=== PATIENT | female | born 1980 | race African-American/Black ===

== ENCOUNTER → 2019-10-24 | Day surgery (SDC) | payer OTHER ==
[~2019-10-24] MED LIST: ATENOLOL50 MG PO; DEPO-PROVE150 MG/11 IM; FENTANYL CITRATE/PF 100MCG/2 ML INJ ONE; FERROUS SULFAT324 MG PO; LEVOTHYROXINE75 MCG PO; LIDOCAINE HCL 2% LOCAL INJ 5 ML SDV VIAL INJ ONE; MIDAZOLAM HCL 2 MG/2 ML VIAL ONE; PROPOFOL IV EMULSION 10 MG/ML 20 ML VIAL ONE; [UNRECOGNIZED DRUG - REMARK] TOP
--- OUTSIDE RECORDS SUMMARY | 2019-10-24 09:33 | XMS REPORT ---
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 Cody A [place] Pelvic pain, chronic active Cody A [place] Primary dysmenorrhea active Cody A [place] ENCOUNTERS Date Type Provider Location Encounter Diagnosis - Ambulatory Encounter Roger Campbell [place] UNK - Ambulatory Encounter Cody A [place] Cody A 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 UNK - Ambulatory Encounter Cody A [place] Cody A [place] [employer]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 UNK - Ambulatory Encounter Paula Truong [facility] Services UNK - Ambulatory Encounter Fax Status [facility] Services UNK - Ambulatory Encounter Silviwesleya Briceno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 UNK - Ambulatory Encounter Cody A [place] Cody A [place] [facility] [place] [facility] UNK - Ambulatory Encounter Cody A [place] Cody A 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 UNK - Ambulatory Encounter Cody A [place] Cody A [place] Campbell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 Pulp Drier annual examCervix, screening for malignant neoplasmHistory of ovarian cystHx of fibroids, uterus - Ambulatory Encounter Cody Ross A 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 UNK - Ambulatory Encounter [facility] [place] 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 - Ambulatory Encounter Cody A [place] Cody A Phoenix [facility] 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 UNK - Ambulatory Encounter Phoebe Larose [facility] UNK - Ambulatory Encounter Fax Status [facility] UNK - Ambulatory Encounter Codyeloy Ross A [place] [facility] 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 UNK - Ambulatory Encounter Cody A [place] Ross A [place] Campbell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 UNK - Ambulatory Encounter Cody Bud Ross A 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 UNK - Ambulatory Encounter Cody A [place] Ross A [place] Truong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 Primary dysmenorrheaPelvic pain, chronic VITAL SIGNS Date Observation Value Provider oxygen saturation, oximetry 97 % Paula Campbell " method used to obtain blood pressure automatic Paula Campbell " Blood Pressure Position 01 sitting Paula Campbell " blood pressure, site #1 left arm Paula Campbell " blood pressure, diastolic 90 mm[Hg] Paula Campbell " blood pressure, systolic 159 mm[Hg] Paula Campbell " respiratory rate E&M 17 /min Paula Campbell " pulse rate E&M 96 /min Paula Campbell " temperature site oral Paula Campbell " temperature E&M 98.6 [degF] Paula Campbell " weight E&M 250 lbs. Paula Campbell " weight in kilograms E&M 113.64 kg Paula Campbell " height E&M 63 [in_i] Paula Campbell " height in centimeters E&M 160.02 cm Paula Campbell oxygen saturation, oximetry 98 % Paula Adrian " method used to obtain blood pressure automatic Paula Campbell " Blood Pressure Position 01 sitting Paula Campbell " blood pressure, site #1 left arm Paula Campbell " blood pressure, diastolic 85 mm[Hg] Paula Campbell " blood pressure, systolic 143 mm[Hg] Paula Campbell " respiratory rate E&M 17 /min Paula Campbell " pulse rate E&M 80 /min Paula Campbell " temperature site oral Paula Campbell " temperature E&M 98.1 [degF] Paula Campbell " weight E&M 245 lbs. Paula Campbell " weight in kilograms E&M 111.36 kg Paula Campbell " height in centimeters E&M 160.02 cm Paula Campbell " height E&M 63 [in_i] Paula Campbell Allergies No Known Allergy Information REASON FOR REFERRAL Start Date - End Date Service - Ultrasound - Pelvic RESULTS No Information Available HISTORY OF IMMUNIZATIONS No Information Available HISTORY OF MEDICATION USE Medication Instructions Dates Provider Comments IBUPROFEN 800 MG ORAL TABLET 1 pill every 8 h By Mouth As Needed for cramps - Cody WHEELER LOESTRIN FE 1 MG-10 MCG / 10 MCG ORAL TABLET 1 pill daily po - Cody Garibay SOCIAL HISTORY Date Observation Value Provider time of call 09/14/2019 4:08 PM Trudy Campbell time of call 05/04/2019 10:26 AM Ratna Truong drug use, illicit Never Paula Campbell " alcohol use Never Paula Campbell " social history E&M Dating. Not homeless. Sexual orientation: Choose not to disclose. Gender identity: Female. Paula Campbell " social history reviewed E&M reviewed today Paula Campbell " sexual orientation Choose not to disclose Paula Campbell " smoking status never smoker Paula Campbell " Exercise Program Referral T Paula Campbell " Weight Management Counseling Provided T Paula Campbell " Nutrition intervention T Paula Campbell social history reviewed E&M reviewed today Paula Campbell " social history E&M Dating. Not homeless. Sexual orientation: Choose not to disclose. Gender identity: Female. Paula Campbell " patient considered to be homeless No Paula Campbell " drug use, illicit Never Paula Parras " alcohol use Never Paula Parras " sexual orientation Choose not to disclose Paula Campbell " is there any chance that you could be ? No Paula Campbell " passive cigarette smoke exposure No Paula Campbell " smoking status never smoker Paula Campbell " Exercise Program Referral T Paula Campbell " Weight Management Counseling Provided T Paula Campbell " Nutrition intervention T Paula Parras FUNCTIONAL STATUS No Information Available MENTAL STATUS Date Observation Value Provider Generalized Anxiety Disorder Questionnaire - Question 2 0 Paula Campbell " Generalized Anxiety Disorder Questionnaire - Question 1 0 Paula Campbell Generalized Anxiety Disorder Questionnaire - Question 2 0 Paula Parras " Generalized Anxiety Disorder Questionnaire - Question 1 0 Paula Campbell MEDICAL EQUIPMENT No Information Available FAMILY HISTORY No Information Available INSURANCE PROVIDERS No Information Available ADVANCE DIRECTIVES No Information Available TREATMENT PLAN Date Name Pap w/HPV w rflx 16/18/45 (30+) - Est Patient Well Exam (18 - 39 Yrs) - 78794 New Patient Detailed - 54029 HISTORY OF PROCEDURES No Information Available GOALS No Information Available HEALTH CONCERNS No Information Available
--- OUTSIDE RECORDS SUMMARY | 2019-10-24 09:33 | XMS REPORT ---
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 Cody A [place] Pelvic pain, chronic active Cody A [place] Primary dysmenorrhea active Cody A [place] ENCOUNTERS Date Type Provider Location Encounter Diagnosis - Ambulatory Encounter Cody A [place] Cody A [place] [facility] DIRECT[facility] UNK - Ambulatory Encounter Cody A [place] Cody A [place] aJya Truong [place] DAY[facility] DIRECTOR Menometrorrhagia - Ambulatory Encounter Silviwesleya Briceno Trudy Caraballo UNK - Ambulatory Encounter Cody A [place] Cody A [place] [facility] UNK - Ambulatory Encounter Cody A [place] Cody A [place] RicoLogbernardo [place] DAYCARE DIRECTOR UNK - Ambulatory Encounter Paula Truong [facility] Services UNK - Ambulatory Encounter [facility] - Ambulatory Encounter Silviamaria Briceno [place] DAYCARE DIRECTOR UNK - Ambulatory Encounter Cody A [place] Cody A [place] [facility] UNK - Ambulatory Encounter Cody Ross A [place] DAYCARE DIRECTOR UNK - Ambulatory Encounter Cody Bud [place] Campbell [place] DAYCARE DIRECTOR Check Totaler annual examCervix, screening for malignant neoplasmHistory of ovarian cystHx of fibroids, uterus - Ambulatory Encounter Cody Ross A [place] DAYCARE DIRECTOR UNK - Ambulatory Encounter Cody Ross A [place] [facility] DAYCARE DIRECTOR UNK - Ambulatory Encounter Cody Ross A [place] [facility] DAYCARE DIRECTOR UNK - Ambulatory Encounter Phoebe Larose [facility] Practice UNK - Ambulatory Encounter [facility]ax Status [facility] UNK - Ambulatory Encounter Cody Ross A [place] [facility] DAYCARE DIRECTOR UNK - Ambulatory Encounter Cody Campbell [place] DAYCARE DIRECTOR UNK - Ambulatory Encounter Cody Ross A [place] DAYCARE DIRECTOR UNK - Ambulatory Encounter Cody Truong [place] DAYCARE DIRECTOR Primary dysmenorrheaPelvic pain, chronic VITAL SIGNS Date Observation Value Provider pulse rate E&M 89 /min Jaya Truong " method used to obtain blood pressure manual Jaya Truong " Blood Pressure Position 01 sitting Jaya Truong " blood pressure, site #1 right arm Jaya Truong " respiratory rate E&M 16 /min Seancyn Alexi " blood pressure, diastolic 75 mm[Hg] Seancyn Alexi " blood pressure, systolic 142 mm[Hg] Seancyn Alexi " oxygen saturation, oximetry 98 % Jaya Alexi " weight E&M 239 lbs. Jaya Alexi " weight in kilograms E&M 108.64 kg Jaya Alexi " height E&M 63 [in_i] Jaya Alexi " height in centimeters E&M 160.02 cm Seancyn Alexi oxygen saturation, oximetry 97 % Paula Parras " method used to obtain blood pressure [...] Campbell oxygen saturation, oximetry 98 % Paula Parras " method used to obtain blood pressure automatic Paula Parras " Blood Pressure Position 01 sitting Paula [...] Garibay SOCIAL HISTORY Date Observation Value Provider drug use, illicit Never Jaya Truong " alcohol use Never Jaya Truong " social history E&M Dating. Not homeless. Sexual orientation: Choose not to disclose. Gender identity: Female. Jaya Truong " social history reviewed E&M reviewed today Jaya Truong " sexual orientation Choose not to disclose Jaya Truong " passive cigarette smoke exposure No Jaya Truong " smoking status never smoker Jaya Truong time of call 09/14/2019 4:08 PM Trudy Campbell time of call 05/04/2019 10:26 AM Ratna Truong drug use, illicit Never Paula Parras " alcohol use Never Paula Campbell " social history E&M Dating. Not homeless. Sexual orientation: Choose not to disclose. Gender identity: Female. Paula Campbell " social history reviewed E&M reviewed today Paula Campbell " sexual orientation Choose not to disclose Paula Campbell " smoking status never smoker Paula Parras " Exercise Program Referral T Paula Parras " Weight Management Counseling Provided T Paula Parras " Nutrition intervention T Paula Parras social history reviewed E&M reviewed today Paula Campbell " social history E&M Dating. Not homeless. Sexual orientation: Choose not to disclose. Gender identity: Female. Paula Campbell " patient considered to be homeless No Paula Parras " drug use, illicit Never Paula Campbell " alcohol use Never Paula Campbell " sexual orientation Choose not to disclose Paula Campbell " is there any chance that you could be ? No Paula Parras " passive cigarette smoke exposure No Paula Parras " smoking status never smoker Paula Campbell " Exercise Program Referral T Paula Parras " Weight Management Counseling Provided T Paula Parras " Nutrition intervention T Paula Campbell FUNCTIONAL STATUS No Information Available MENTAL STATUS Date Observation Value Provider Generalized Anxiety Disorder Questionnaire - Question 2 0 Jaya Truong " Generalized Anxiety Disorder Questionnaire - Question 1 0 Jaya Truong Generalized Anxiety Disorder Questionnaire - Question 2 [...] Pap w/HPV w rflx 16/18/45 (30+) - IM or SQ Injection Est Patient Exp Problem - 93643 Est Patient Well Exam (18 - 39 Yrs) - 04454 New Patient Detailed - 29454 HISTORY OF PROCEDURES Procedure Date Procedure Name Provider Procedure Notes Status IM or SQ Injection Cody Garibay completed GOALS No Information Available HEALTH CONCERNS No Information Available
--- OUTSIDE RECORDS SUMMARY | 2019-10-24 09:33 | XMS REPORT ---
Author Author [facility] Address Unknown Phone Unavailable Care Team Providers Care Car Wash Supervisor Name Role Phone Unavailable Unavailable Problems This patient has no known problems. Allergies, Adverse Reactions, Alerts This patient has no known allergies or adverse reactions. Medications This patient has no known medications.
--- OUTSIDE RECORDS SUMMARY | 2019-10-24 09:33 | XMS REPORT ---
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 UNK - Ambulatory Encounter Cody A [place] Cody A [place] Jaya Truong [employer] FELT MACHINE MECHANIC Menometrorrhagia - Ambulatory Encounter Silviwesleya Briceno Trudy Caraballo UNK - Ambulatory Encounter Cody A [place] Cody A [place] [employer] FELT MACHINE MECHANIC UNK - Ambulatory Encounter Cody A [place] Cody A [place] RicoLogbernardo [employer] FELT MACHINE MECHANIC UNK - Ambulatory Encounter Paula Truong Pending [facility] UNK - Ambulatory Encounter Fax Status [facility] UNK - Ambulatory Encounter Silviamaria Briceno [place] FELT MACHINE MECHANIC UNK - Ambulatory Encounter Cody A [place] Cody A [place] [facility] UNK - Ambulatory Encounter Cody Ross A [place] [employer] FELT MACHINE MECHANIC UNK - Ambulatory Encounter Cody Bud [place] Campbell [employer] FELT MACHINE MECHANIC Senior Sql Server Developer annual examCervix, screening for malignant neoplasmHistory of ovarian cystHx of fibroids, uterus - Ambulatory Encounter Cody Ross A [place] [employer] FELT MACHINE MECHANIC UNK - Ambulatory Encounter Cody Ross A [place] [facility] FELT MACHINE MECHANIC UNK - Ambulatory Encounter Cody Ross A [place] [facility] FELT MACHINE MECHANIC UNK - Ambulatory Encounter Phoebe Larose [facility] Practice UNK - Ambulatory Encounter Fax Status [facility] UNK - Ambulatory Encounter Cody Ross A [place] [facility] FELT MACHINE MECHANIC UNK - Ambulatory Encounter Cody Campbell [employer] FELT MACHINE MECHANIC UNK - Ambulatory Encounter Cody Ross A [place] [employer] FELT MACHINE MECHANIC UNK - Ambulatory Encounter Cody Truong [place] FELT MACHINE MECHANIC Primary dysmenorrheaPelvic pain, chronic VITAL SIGNS Date [...] SQ Injection Est Patient Exp Problem - 67078 Est Patient Well Exam (18 - 39 Yrs) - 90170 New Patient Detailed - 06141 HISTORY OF PROCEDURES Procedure Date Procedure Name Provider Procedure Notes Status IM or SQ Injection Cody Garibay completed GOALS No Information Available HEALTH CONCERNS No Information Available
--- OUTSIDE RECORDS SUMMARY | 2019-10-24 09:34 | XMS REPORT | Summary of Care ---
Author Author [facility] - Health Organization [facility] - Health Address Unknown Phone Unavailable Care Team Providers Care Sales Service Route Manager Name Role Phone Quan Rodríguez PCP Reason for Visit * Reason Comments LAB WORK Encounter Details Care Team Description Date Type Department Evelyn Resendiz, BRIDGE OPERATOR [address] [facility] [address] [place] [address] [phone] Vls-Lab Acute cystitis without hematuria; Left ureteral calculus 10/05/2019 Smoke Jumper Supervisor [facility] Visit PHLEBOTOMY/LAB [address] [facility] [address] [place] [phone] Allergies No Known Allergiesdocumented as of this encounter (statuses as of 10/05/2019) Medications End Date Status Medication Sig Dispensed Refills Start Date Active ferrous sulfate (IRON, Take 325 mg 0 FERROUS SULFATE,) 325 mg by mouth 3 (65 mg iron) tablet (three) times daily with meals. Active hydrocortisone (HYTONE) Apply to 60 g 3 2.5 % creamIndications: affected 6 Rash area(s) 2 (two) times daily. Active fluocinolone Apply to 118.28 mL 3 (DERMA-SMOOTHE) 0.01 % area(s) 2 6 body oilIndications: Rash (two) times daily. Active hydrOXYzine (ATARAX) 10 Take 1 tablet 90 tablet 1 mg tabletIndications: by mouth at 6 Rash bedtime. Up to 3 tabs qHS PRN pruritus Active triamcinolone acetonide Apply to 454 g 2 0.1 % area(s) 2 9 ointmentIndications: Rash (two) times and other nonspecific daily. skin eruption Active triamcinolone acetonide Apply to 320 g 3 0.1 % creamIndications: area(s) 2 9 Rash and other (two) times nonspecific skin eruption daily. Apply BID-TID, apply vaseline on top of medication 10/13/2019 Active ondansetron 4 mg tablet Take 4 mg by 0 mouth. 0 Active LO LOESTRIN FE 1 mg-10 TK 1 T PO D 0 mcg (24)/10 mcg (2) per 0 tablet 10/13/2019 Active naproxen 500 mg tablet Take 500 mg 0 by mouth. 0 Active levothyroxine 75 mcg TK 1 T PO QD 0 tablet 0 Active atenoloL 25 mg tablet TK 1 T PO QD 0 0 Active ibuprofen 800 mg tablet TK 1 T PO Q 0 8 H PRF 0 CRAMPS Active amoxicillin 875 mg Take 1 tablet 10 tablet 0 tabletIndications: Acute by mouth 2 0 cystitis without (two) times hematuria daily. Active tamsulosin 0.4 mg 24 hr Take 1 21 capsule 0 capsuleIndications: Left capsule by 0 ureteral calculus mouth at bedtime. documented as of this encounter (statuses as of 10/05/2019) Active Problems Problem Noted Date Acute cystitis without hematuria 10/03/2019 Hydronephrosis of left kidney 09/24/2019 Left flank pain 09/24/2019 Renal calculi 09/24/2019 documented as of this encounter (statuses as of 10/05/2019) Social History Date Tobacco Use Types Packs/Day Years Used Never Smoker Smokeless Tobacco: Never Used Drinks/Week oz/Week Comments Alcohol Use Not Asked Sex Assigned at Date Recorded Not on file Industry Job Start Date Occupation Not on file Not on file Not on file Travel End Travel History Travel Start No recent travel history available. documented as of this encounter Last Filed Vital Signs Not on filedocumented in this encounter Plan of Treatment Care Team Description Date Type Specialty Evelyn Resendiz, BRIDGE OPERATOR [address] [facility] [address] [place] [address] [phone] 10/30/2019 Office Visit Urology Health Maintenance Due Date Last Done Comments DTaP,Tdap,and Td Vaccines 1991 (1 - Tdap) PAP SMEAR 2001 INFLUENZA VACCINE (#1) 2019 PNEUMOCOCCAL 0-64 YEARS Aged Out No longer eligible based COMBINED SERIES on patient's age to complete this topic documented as of this encounter Results Not on filedocumented in this encounter Visit Diagnoses Diagnosis Acute cystitis without hematuria Acute cystitis Left ureteral calculus Calculus of ureter documented in this encounter Insurance Type Payer Benefit Subscriber ID Effective Phone Address Plan / Dates Group Medicaid [employer] [place] xxxxxxxxx 2012-P PLAN - MANAGED MEDICAID STAR PLUS resent documented as of this encounter
--- OUTSIDE RECORDS SUMMARY | 2019-10-24 09:34 | XMS REPORT ---
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 Cody Bud CrawfordP[place] Pelvic pain, chronic active Cody A [place] Primary dysmenorrhea active Cody A [place] ENCOUNTERS Date Type Provider Location Encounter Diagnosis - Ambulatory Encounter Roger Sebastian Pending [facility] UNK - Ambulatory Encounter [facility] - Ambulatory Encounter [facility] - Ambulatory Encounter [facility] UNK - Ambulatory Encounter Cody A [place] Cody A [place] [employer] TELEVISION PRESENTER UNK - Ambulatory Encounter Cody A [place] Cody A [place] Daniela Laneinto TELEVISION PRESENTER Menometrorrhagia - Ambulatory Encounter Silcatrachito Campbell [place] UNK - Ambulatory Encounter Cody A [place] Cody A [place] [employer] TELEVISION PRESENTER UNK - Ambulatory Encounter Cody A [place] Cody A [place] [employer] TELEVISION PRESENTER UNK - Ambulatory Encounter Paula Truong [facility] UNK - Ambulatory Encounter Fax Status [facility] UNK - Ambulatory Encounter Roger Briceno [employer] TELEVISION PRESENTER UNK - Ambulatory Encounter Cody A [place] [facility] [place] [facility] - Ambulatory Encounter Cody A [place] Cody A [place] [employer] TELEVISION PRESENTER UNK - Ambulatory Encounter Cody A [place] Ross A [place] aCmpbell [employer] TELEVISION PRESENTER Laborer Ammunition Assembly annual examCervix, screening for malignant neoplasmHistory of ovarian cystHx of fibroids, uterus - Ambulatory Encounter Cody A [place] Cody A [place] [employer] TELEVISION PRESENTER UNK - Ambulatory Encounter Cody A [place] Cody A [place] [facility] - Ambulatory Encounter Cody A [place] Cody A [place] [facility] - Ambulatory Encounter Phoebe Larose [facility] UNK - Ambulatory Encounter Fax Status [facility] UNK - Ambulatory Encounter Cody A [place] Cody A [place] [facility] - Ambulatory Encounter Cody A [place] Cody A [place] Campbell [facility] TELEVISION PRESENTER UNK - Ambulatory Encounter Cody A [place] Ross Bud Garibay Hebert Alvarado TELEVISION PRESENTER UNK - Ambulatory Encounter Cody Bud [place] TELEVISION PRESENTER Primary dysmenorrheaPelvic pain, chronic VITAL SIGNS Date Observation Value Provider pulse rate E&M 89 /min Jaya Truong " method used to obtain blood pressure manual Jaya Truong " Blood Pressure Position 01 sitting Jaya Truong " blood pressure, site #1 right arm Jaya Truong " respiratory rate E&M 16 /min Jaya Truong " blood pressure, diastolic 75 mm[Hg] Jaya Truong " blood pressure, systolic 142 mm[Hg] Jaya Truong " oxygen saturation, oximetry 98 % Jaya Truong " weight E&M 239 lbs. Jaya Truong " weight in kilograms E&M 108.64 kg Jaya Truong " height E&M 63 [in_i] Jaya Truong " height in centimeters E&M 160.02 cm Jaya Truong oxygen saturation, oximetry 97 % Paula Parras [...] Campbell oxygen saturation, oximetry 98 % Paula Campbell " method used to [...] Start Date - End Date Service - OB / Laborer Ammunition Assembly - External - Ultrasound - Pelvic RESULTS No Information [...] Date Observation Value Provider time of call 10/01/2019 2:16 PM Gina Sebastian drug use, illicit Never Jaya Truong " [...] Campbell " drug use, illicit Never Paula Campbell [...] Disorder Questionnaire - Question 1 0 Paula Parras Generalized Anxiety Disorder Questionnaire - Question 2 0 Paula Campbell " Generalized Anxiety Disorder Questionnaire - Question 1 0 Paula Campbell MEDICAL EQUIPMENT No Information Available FAMILY HISTORY No Information Available INSURANCE PROVIDERS No Information Available ADVANCE DIRECTIVES No Information Available TREATMENT PLAN Date Name Pap w/HPV w rflx 16/18/45 (30+) - - IM or SQ Injection Est Patient Exp Problem - 31986 Est Patient Well Exam (18 - 39 Yrs) - 35841 New Patient Detailed - 98320 HISTORY OF PROCEDURES Procedure Date Procedure Name Provider Procedure Notes Status IM or SQ Injection Cody Garibay completed GOALS No Information Available HEALTH CONCERNS No Information Available
--- OUTSIDE RECORDS SUMMARY | 2019-10-24 09:34 | XMS REPORT | Summary of Care ---
Author Author [facility] - Health Organization [facility] - Health Address Unknown Phone Unavailable Care Team Providers Care Clothing Room Supervisor Name Role Phone Marcos Quan Arevalo PCP Reason for Referral * MRI/CAT Scan (Routine) Referred By Contact Referred To Contact Status Reason Specialty Diagnoses / Procedures Evelyn Resendiz [facility] [address] [facility] [address] [place] [address] Authorized Diagnostic Diagnoses Radiology Hydronephrosis of left kidney Left flank pain Renal calculi P rocedures CT ABDOMEN PELVIS W WO CONTRAST Reason for Visit * Reason Comments Establish Care Kidney Stones Encounter Details Care Team Description Date Type Department Evelyn Resendiz [facility] [address] [facility] [address] [place] [address] [phone] Hydronephrosis of left kidney (Primary Dx); Left flank pain; Renal calculi; Acute cystitis without hematuria 09/24/2019 Office Visit [facility] [address], [address] [place] [id number] Allergies No Known Allergiesdocumented as of this encounter (statuses as of 10/03/2019) Medications End Date Status Medication Sig Dispensed [...] 0 cystitis without (two) times hematuria daily. documented as of this encounter (statuses as of 10/03/2019) Active Problems Problem Noted Date Acute cystitis without hematuria 10/03/2019 Hydronephrosis of left kidney 09/24/2019 Left flank pain 09/24/2019 Renal calculi 09/24/2019 documented as of this encounter (statuses as of 10/03/2019) Social History Date Tobacco Use Types Packs/Day Years Used Never Smoker Smokeless Tobacco: Never Used Tobacco Cessation: Counseling Given: Yes Drinks/Week oz/Week Comments Alcohol Use Not Asked Sex Assigned at Date Recorded Not on file Industry Job Start Date Occupation Not on file Not on file Not on file Travel End Travel History Travel Start No recent travel history available. documented as of this encounter Last Filed Vital Signs Reading Time Taken Comments Vital Sign 147/89 09/24/2019 2:41 PM [employer] ARCHIT[employer] Blood Pressure 71 09/24/2019 2:41 PM IN[employer]ICA ARCHITECT Pulse - - Temperature 18 09/24/2019 2:41 PM IN[employer]ICA ARCHITECT Respiratory Rate 98% 09/24/2019 2:41 PM IN[employer]ICA ARCHITECT Oxygen Saturation - - Inhaled Oxygen Concentration 107 kg (235 lb 14.4 oz) 09/24/2019 2:41 PM INFORMATICA ARCHITECT Weight - - Height - - Body Mass Index documented in this encounter Patient Instructions * Patient Instructions* Evelyn Resendiz, PELT INSPECTOR - 09/24/2019 2:30 PM INFORMATICA ARCHITECT Increase water intake Strain urine Understanding Hydronephrosis Hydronephrosis is when your kidneys fill with too much urine and swell up. It s cause by a problem in the urinary tract that stops urine from draining normall y. How to say it [id number] How hydronephrosis happens Urine usually flows from the kidneys down through the ureters, bladder, and out of the body through the urethra. Hydronephrosis occurs when something blocks thi s flow of urine. What causes hydronephrosis? The condition has many possible causes. They include: Narrowing (stricture) in a tube that drains urine (ureter or urethra) Kidney stone Blood clot Enlarged prostate Cancer growth Infection Fibroids in the uterus Injury Symptoms of hydronephrosis Symptoms may include: Pain in your side and back Pain when urinating Nausea and vomiting Small amount of urine or no urine Urinating often or feeling the urge to urinate often Urinary incontinence Blood in urine Fever Symptoms will depend on the cause of the blockage and how serious it is. Diagnosing hydronephrosis Your healthcare provider will ask about your symptoms and health history. He or she will give you a physical exam. The physical exam may include a rectal exam o r a pelvic exam. You may also have tests such as: Blood tests. These are done to see how well your kidneys are filtering the bl ood. Urine test. This is done to look for infections and other problems. Imaging test. You may have an ultrasound, MRI, or CT scan. These tests make i mages of your organs and other tissues. They can show blockages, growths, and ot her problems. Other imaging tests. You may also have a cystourethrogram, ureterogram, or re nogram. These tests create special detailed images of the bladder, ureters, and kidneys. Treatment for hydronephrosis Treatment depends on what is causing the problem. Your healthcare providers will need to drain the urine, and treat the cause. You may also see a urologist, diver's tender real estate firm manager, or oncologist for treatment. Treatment may include: Tube to drain urine. A thin, flexible tube (catheter) may be put into your ur ethra or through a small cut in the abdomen, and up into the kidney. A small tub e (stent) may be put in near the kidney to keep the urine draining. Or a tube ma y be put through a cut in the skin directly into your kidney. Surgery. You may need surgery to fix something blocking urine, such as a grow th or stricture. You may also be treated with: Medicines to treat pain, nausea, and vomiting Antibiotics to treat an infection Possible complications of hydronephrosis In some cases, hydronephrosis may cause long-term (permanent) kidney damage. When to call your healthcare provider Call your healthcare provider if you have any of the following: Fever of 100.4F (38C) or higher, or as directed by your healthcare provid er Pain that gets worse Symptoms that dont get better, or get worse New symptoms Dwayne last reviewed this educational content on 07/29/201719993049-6196 [email or web address]. [address] [place] [address] 1906 7. All rights reserved. This information is not intended as a substitute for pro fessional medical care. Always follow your healthcare professional's instruction s. Understanding Kidney Stones Your kidneys are armenta-shaped organs. They help filter extra salts, waste, and wa ter from your body. You need to drink enough water every day to help flush the e xtra salts into your urine. What are kidney stones? Kidney stones are made up of chemical crystals that separate out from urine. The se crystals clump together to make stones. They form in the calyx of the kidney. They may stay in the kidney or move into the urinary tract. Why kidney stones form Kidneys form stones for many reasons. If you dont drink enough water, for ins tance, you wont have enough urine to dilute chemicals. Then the chemicals may form crystals, which can develop into stones. Here are some reasons why kidney stones form: Fluid loss (dehydration). This can concentrate urine, causing stones to form. Certain foods. Some foods contain large amounts of the chemicals that sometim es crystallize into stones. Eating foods that contain a lot of meat or salt can lead to more kidney stones. Kidney infections. These infections foster stones by slowing urine flow or ch anging the acid balance of your urine. Family history. If family membershave had kidney stones, youre more like ly to have them, too. A lack of certain substances in your urine. Some substances can help protect you from forming stones. If you dont have enough of these in your urine, ston e formation can increase. Where stones form Stones begin in the cup-shaped part of the kidney (calyx). Some stay in the gabbie x and grow. Others moveinto the kidney, pelvis, or into the ureter. There they can lodge, block the flow of urine, and cause pain. Symptoms Many stones cause sudden and severe pain andbloody urine. Others cause nausea or frequent, burning urination. Symptoms often depend on your stones size and location. Fever may indicate a serious infection. Call your healthcare provider right away if you develop a fever. [employer] last reviewed this educational content on 08/29/201619997546-1764 [email or web address]. [address] [place] [address] 7. All rights reserved. This information is not intended as a substitute for pro fessional medical care. Always follow your healthcare professional's instruction s. RMATICA ARCHITECT documented in this encounter Progress Notes * Evelyn Resendiz FNP - 09/24/2019 2:30 PM INFORMATICA ARCHITECT Visit Type: Clinic Note / History and Physical Referred by: ER Chief Complaint: Kidney stones HPI Arturo Adams is a 39 year old female with a past medical history of below presen ts for evaluation of kidney stones accompanied by her mother. She was seen on [facility] 09/13/2019 for LLQ pain with vomiting. WBC 9.4, creatinine 0.90, UA po sitive for blood and small amount of leuks, WBC 15, RBC 32, urine culture with m ixed pedro <10, 000. CT scan with contrast with multiple stones in left kidney 2-10 mm, marked left hydro and no stones in left ureter. Left renal pelvic stone 10 mm. Pelvic US with multiple uterine fibroids - largest 3.3 cm, right ovarian cyst 3.8 cm. No fever, chills, flank pain, vomiting, dysuria or hematuria present currently. No prior history of stones. No recurrent UTIs. Admits to little water intake. LMP 09/03/2019. Histories PMH- HTN, hypothyroid PSH - Umbilical hernia 3-4x - last 2012 Family history - No cancer or stones. Social - No tobacco, recreational drug use or ETOH. No past medical history on file. No past surgical history on file. No family history on file. Social History Socioeconomic History Marital status: Single Spouse name: Not on file Number of children: Not on file Years of education: Not on file Highest education level: Not on file Occupational History Not on file Social Needs Financial resource strain: Not on file Food insecurity: Worry: Not on file Inability: Not on file Transportation needs: Medical: Not on file Non-medical: Not on file Tobacco Use Smoking status: Never Smoker Smokeless tobacco: Never Used Substance and Sexual Activity Alcohol use: Not on file Drug use: Not on file Sexual activity: Not on file Lifestyle Physical activity: Days per week: Not on file Minutes per session: Not on file Stress: Not on file Relationships Social connections: Talks on phone: Not on file Gets together: Not on file Attends congregation service: Not on file Active member of club or organization: Not on file Attends meetings of clubs or organizations: Not on file Relationship status: Not on file Intimate partner violence: Fear of current or ex partner: Not on file Emotionally abused: Not on file Physically abused: Not on file Forced sexual activity: Not on file Other Topics Concern Not on file Social History Narrative Not on file Review of Systems Constitutional: Negative for chills, fever and unexpected weight change. HENT: Negative. Eyes: Negative. Respiratory: Negative for cough, shortness of breath and wheezing. Cardiovascular: Negative for chest pain and palpitations. Gastrointestinal: Positive for abdominal pain and nausea. Negative for vomiting. Genitourinary: Negative for bladder incontinence, dysuria, urgency, frequency an d hematuria. Musculoskeletal: Positive for back pain and myalgias. Skin: Positive for rash. Neurological: Negative. Psychiatric/Behavioral: Negative. Endocrine: Endocrine negative Physical Exam Constitutional: She appears well-developed and well-nourished. No distress. HENT: Head: Normocephalic and atraumatic. Eyes: Conjunctivae are normal. Neck: Neck supple. Cardiovascular: Normal rate. Pulmonary/Chest: Effort normal. Abdominal: Obese, soft. She exhibits no distension. Back: Mild left CVA tenderness Genitourinary: Mild left suprapubic tenderness Musculoskeletal: She exhibits no edema. Neurological: She is alert and oriented to person, place, and time. Skin: Skin is warm and dry. Psychiatric: She has a normal mood and affect. Her behavior is normal. Vitals reviewed. BP (!) 147/89 | Pulse 71 | Resp 18 | Wt 235 lb 14.4 oz (107 kg) | SpO2 98% Laboratory No results found for: CREAT No results found for: HGBA1C There are no current results on file for these tests and/or test for 1 year. There are no current results on file for these tests and/or test for 1 year. There are no current results on file for these tests and/or test for 1 year. There are no current results on file for these tests and/or test for 1 year. Care Everywhere Result Report Urine cultureResulted: 09/15/2019 7:51 AM Roverto [employer]orationism Component Name Value Ref Range Urine culture isolate Mixed pedro <=10-3 col/cc Comment: Specimen Information Specimen Source: Urine Specimen Site: Clean catch Specimen Collected on Results for orders placed or performed during the hospital encounter of 09/13/19 CBC with platelet and differential Result Value Ref Range WBC 9.4 4.2 - 11.0 k/uL RBC 5.21 4.04 - 5.86 m/uL HGB 13.4 11.5 - 15.3 g/dL HCT 43.2 34.0 - 45.0 % MCV 82.9 80.0 - 98.0 fL MCH 25.7 (L) 27.0 - 34.0 pg MCHC 31.0 (L) 31.5 - 36.5 g/dL RDW - SD 42.6 37.0 - 51.0 fL MPV 10.2 7.4 - 10.4 fL Platelet count 445 (H) 150 - 400 k/uL Nucleated RBC 0.00 /100 WBC Neutrophils 62.8 36.0 - 66.0 % Lymphocytes 29.2 24.0 - 44.0 % Monocytes 6.8 (H) 0.0 - 6.0 % Eosinophils 0.6 0.0 - 6.0 % Basophils 0.4 0.0 - 1.2 % Immature granulocytes 0.2 0.0 - 1.0 % Comprehensive metabolic panel Result Value Ref Range Sodium 140 135 - 150 mEq/L Potassium 3.9 3.5 - 5.0 mEq/L Chloride 105 98 - 112 mEq/L CO2 26 24 - 31 mmol/L Anion gap 9@ANIO 7 - 15 mEq/L BUN 6 (L) 7 - 18 mg/dL Creatinine 0.90 0.50 - 0.90 mg/dL Glucose 110 (H) 65 - 100 mg/dL Calcium 9.3 8.3 - 10.2 mg/dL Protein 7.7 6.3 - 8.3 g/dL Albumin 3.9 3.5 - 5.0 g/dL A/G ratio 1.0 0.7 - 3.8 Alkaline phosphatase 76 0 - 104 U/L AST 17 10 - 35 U/L ALT 11 5 - 50 U/L Total bilirubin 0.3 0.2 - 1.2 mg/dL Lipase level Result Value Ref Range Lipase 21 13 - 60 U/L Urinalysis screen and microscopy, with reflex to culture Result Value Ref Range Specimen site Clean catch Color, UA Straw Appearance, UA Clear Specific gravity, UA 1.004 1.001 - 1.035 pH, UA 6.0 5.0 - 8.5 Protein, UA 1+ (A) Negative Glucose, UA Negative Negative Ketones, UA Negative Negative Bilirubin, UA Negative Negative Blood, UA Large (A) Negative Nitrite, UA Negative Negative Urobilinogen, UA Negative <2.0 Leukocyte esterase, UA Small (A) Negative Epithelial cells, UA Many /HPF WBC, UA 15 (H) 0 - 5 /HPF RBC, UA 32 (H) 0 - 5 /HPF Bacteria, UA Many (A) None seen Yeast, UA None seen Yeast with pseudohyphae, UA None seen hCG qualitative, urine screen Result Value Ref Range hCG qualitative, urine Negative Negative Estimated GFR Result Value Ref Range Estimated GFR >=90 mL/min/1.73 m2 Radiology 09/13/2019 CT A/P with contrast - care everywhere FINDINGS: Visualized lower lung zones are clear. The gallbladder has stones. There is no pericholecystic fluid present. The CT appearance of the liver, spleen, adrenal glands and pancreas is unremarka ble. The abdominal aorta has no aneurysmal dilatation. There is no retroperitoneal ad enopathy. The right kidney does not have any stones or any hydronephrosis. The left kidney has multiple stones. They range in size from 2-10 mm. There is marked hydroneph rosis within the left kidney. The left ureter does not have any stones. CT Pelvis: There is no evidence of any pneumoperitoneum. Stomach does not demonstrate any wall thickening. Small bowel is not dilated. The appendix is visualized and has no focal inflammatory change. The uterus is present. There is a 3.1 cm right ovarian cyst present. : Does not have any focal inflammatory change. There is no inguinal hernia. Nons pecific inguinal adenopathy is present. IMPRESSION: 1. There are multiple stones seen within the left kidney. They range in size fro m 2 to 10 mm. The largest stone is seen within the left renal pelvis and measure s 10 mm. 2. There is marked hydronephrosis seen within the left kidney. The left ureter d oes not have any stones. 3. The right kidney, right ureter and bladder do not have any stones. There is n o hydronephrosis seen within the right kidney. 4. Cholelithiasis is present. 5. The appendix is unremarkable. Procedure Note none Assessment/Plan Arturo Adams is a 39 year old female with: 1. Left renal calculi 2-10 mm (no ureteral calculus on CT with contrast) 2. Left hydronephrosis 3. HTN 4. Hypothyroid Plan 1. UA/Urine C&S 2. CT Urogram - assess for ureteral calculus 3. Creatinine 4. Increase water intake 5. Strain urine, urine strainer provider 6. Will notify of results and follow-up accordingly 7. ER precautions discussed 8. Will need metabolic evaluation in future 9. If no ureteral calculus consider renal scan to evaluate hydro Evelyn Resendiz APRN, ARNALDO-C RMATICA ARCHITECT documented in this encounter Plan of Treatment Care Team Description Date Type Specialty Smitha Gonsalez MD [id number] [place] [address] [phone] 10/04/2019 Office Visit Dermatology Health Maintenance Due Date Last Done Comments DTaP,Tdap,and Td Vaccines 1991 (1 - Tdap) PAP SMEAR 2001 INFLUENZA VACCINE (#1) 2019 PNEUMOCOCCAL 0-64 YEARS Aged Out No longer eligible based COMBINED SERIES on patient's age to complete this topic documented as of this encounter Procedures Comments Procedure Name Priority Date/Time Associated Diagnosis URINE CULTURE Routine 09/24/2019 Hydronephrosis of left 3:31 PM INFORMATICA ARCHITECT kidney Left flank pain Renal calculi URINALYSIS Routine 09/24/2019 Hydronephrosis of left 3:30 PM INFORMATICA ARCHITECT kidney Left flank pain Renal calculi documented in this encounter Results * CT ABDOMEN PELVIS W WO CONTRAST (09/29/2019 9:48 AM INFORMATICA ARCHITECT) Specimen Impressions Performed At A punctate stone is suspected in the left distal ureter, near the UVJ PACS/VR/DOSE (3:108). Urothelial thickening and inflammatory changes about the left renal pelvis and proximal ureter is likely related to stone passage; however, an underlying ascending UTI cannot be excluded. Left renal pelvic stone measuring 1.9 cm with no hydronephrosis. Biliary sludge with no evidence of cholecystitis. Multiple subserosal and intramural leiomyomas as detailed above. Right ovarian hemorrhagic cyst measuring 2.6 cm. Preliminary Report Dictated by Resident: Nathalia Andrews I, Kennedi George MD., have reviewed this study and agree with the above report. Narrative Performed At CT ABDOMEN PELVIS W WO CONTRAST PACS/VR/DOSE HISTORY: 39 years-old; Female; Flank pain, stone disease suspected left renal calculi, left hydronephrosis, Left flank pain CT Urogram COMPARISON: None TECHNIQUE AND FINDINGS: Contiguous axial imaging from the level of the lung bases through the pubic symphysis was performed before and after the uncomplicated administration of 130 cc of intravenous Omnipaque contrast. Coronal and sagittal reconstructions were obtained. Auto mA and/or iterative reconstruction were used to reduce radiation dose. FINDINGS: LOWER THORAX: The lung bases are clear. No cardiomegaly. LIVER: No focal hepatic lesions. Normal contour. GALLBLADDER AND BILIARY TREE: High attenuated layering material is noted dependently in the neck of the gallbladder, likely radiodense biliary sludge. There is no wall thickening or pericholecystic fluid. No intra or extrahepatic biliary ductal dilatation is noted. SPLEEN: Unremarkable. PANCREAS: No ductal dilation or masses. ADRENAL GLANDS: No adrenal mass. KIDNEYS: A 1.9 cm stone is noted in the pelvis of the left kidney with no hydronephrosis. Urothelial thickening and enhancement of the renal pelvis and proximal left ureter is noted with surrounding fatty stranding and inflammatory changes. A punctate stone is suspected in the left distal ureter near the UVJ (3:108). There are no renal masses. PERITONEUM AND RETROPERITONEUM: No free air or fluid collection. LYMPH NODES: No intra-abdominal or pelvic lymph node enlargement. GI TRACT: No dilation or bowel wall thickening. Appendix is normal. PELVIS/BLADDER: Bladder is fully distended with no wall thickening. Multiple masslike lesions are noted in the uterus with the largest exophytic lesion measuring 3.9 cm along the anterior wall (6:106) and an intramural lesion measuring 3.4 cm (6:102). Another exophytic lesion measures 2.3 cm left wall (604:62). A round low attenuated cystic structure is noted along the right adnexa measuring 2.6 cm in diameter with central density of 45 Hounsfield units. VESSELS: Unremarkable. BONES AND SOFT TISSUES: No suspicious lytic or sclerotic bony lesions. Procedure Note [facility], Radiant Results Inft User - 10/01/2019 10:[address] ABDOMEN PELVIS W WO CONTRAST HISTORY: 39 years-old; Female; Flank pain, stone disease suspected left renal calculi, left hydronephrosis, Left flank pain CT Urogram COMPARISON: None TECHNIQUE AND FINDINGS: Contiguous axial imaging from the level of the lung bases through the pubic symphysis was performed before and after the uncomplicated administration of 130 cc of intravenous Omnipaque contrast. Coronal and sagittal reconstructions were obtained. Auto mA and/or iterative reconstruction were used to reduce radiation dose. FINDINGS: LOWER THORAX: The lung bases are clear. No cardiomegaly. LIVER: No focal hepatic lesions. Normal contour. GALLBLADDER AND BILIARY TREE: High attenuated layering material is noted dependently in the neck of the gallbladder, likely radiodense biliary sludge. There is no wall thickening or pericholecystic fluid. No intra or extrahepatic biliary ductal dilatation is noted. SPLEEN: Unremarkable. PANCREAS: No ductal dilation or masses. ADRENAL GLANDS: No adrenal mass. KIDNEYS: A 1.9 cm stone is noted in the pelvis of the left kidney with no hydronephrosis. Urothelial thickening and enhancement of the renal pelvis and proximal left ureter is noted with surrounding fatty stranding and inflammatory changes. A punctate stone is suspected in the left distal ureter near the UVJ (3:108). There are no renal masses. PERITONEUM AND RETROPERITONEUM: No free air or fluid collection. LYMPH NODES: No intra-abdominal or pelvic lymph node enlargement. GI TRACT: No dilation or bowel wall thickening. Appendix is normal. PELVIS/BLADDER: Bladder is fully distended with no wall thickening. Multiple masslike lesions are noted in the uterus with the largest exophytic lesion measuring 3.9 cm along the anterior wall (6:106) and an intramural lesion measuring 3.4 cm (6:102). Another exophytic lesion measures 2.3 cm left wall (604:62). A round low attenuated cystic structure is noted along the right adnexa measuring 2.6 cm in diameter with central density of 45 Hounsfield units. VESSELS: Unremarkable. BONES AND SOFT TISSUES: No suspicious lytic or sclerotic bony lesions. IMPRESSION A punctate stone is suspected in the left distal ureter, near the UVJ (3:108). Urothelial thickening and inflammatory changes about the left renal pelvis and proximal ureter is likely related to stone passage; however, an underlying ascending UTI cannot be excluded. Left renal pelvic stone measuring 1.9 cm with no hydronephrosis. Biliary sludge with no evidence of cholecystitis. Multiple subserosal and intramural leiomyomas as detailed above. Right ovarian hemorrhagic cyst measuring 2.6 cm. Preliminary Report Dictated by Resident: Kennedi Sainz MD., have reviewed this study and agree with the above report. Performing Organization Address City/State/Zipcode Phone Number PACS/VR/DOSE * CREATININE (09/24/2019 3:35 PM INFORMATICA ARCHITECT) CREATININE 0.69 0.50 - 1.04 mg/dL [facility]OR[facility] SERVICES-[facility] eGFR 94.7 mL/min/1.73m2 [facility] Calculation SERVICES-[facility] (Non-[facility] Finnish) eGFR 114.8 mL/min/1.73m2 [facility] Calculation SERVICES-[facility] ([facility]) Specimen Blood Narrative Performed At Association of Glomerular Filtration Rate (GFR) and Staging of Kidney Disease* [facility] + + + + [facility] | GFR (mL/min/1.73 m2) | With Kidney Damage | Without Kidney Damage CAMPUS + + + + | >90 | Stage one | Normal + + + + | 60-89 | Stage two | Decreased GFR + + + + | 30-59 | Stage three | Stage three + + + + | 15-29 | Stage four | Stage four + + + + | <15 (or dialysis) | Stage five | Stage five + + + + *Each stage assumes the associated GFR level has been in effect for at least three months. Stages 1 to 5, with or without kidney disease, indicate chronic kidney disease. Notes: Determination of stages one and two (with eGFR >59mL/min/1.73 m2) requires estimation of kidney damage for at least three months as defined by structural or functional abnormalities of the kidney, manifested by either: Pathological abnormalities or Markers of kidney damage (including abnormalities in the composition of the blood or urine or abnormalities in imaging tests). Performing Organization Address City/State/Zipcode Phone Number [facility] CLIA: [id number], [address] [place] [address] [facility] ([place], [place]) * URINE CULTURE (09/24/2019 3:31 PM INFORMATICA ARCHITECT) Pathologist [facility] URINE CULTURE 10,000-100,000 CFU/mL [facility] Enterococcus faecalis SERVICES Specimen Urine - URINE, CLEAN CATCH Narrative Performed At Susceptibility testing of Enterococci from outpatient urine specimen is not [facility] routinely performed. [facility] data show that 97% of such isolates are susceptible to SERVICES Ampicillin. Performing Organization Address City/State/Zipcode Phone Number [facility] CLIA: [id number], [address] [place], [place] [id number] [facility] * URINALYSIS (09/24/2019 3:30 PM INFORMATICA ARCHITECT) Pathologist [facility] APPEARANCE Cloudy (A) Clear [facility] COLOR Yellow Yellow [facility] PH 5.0 4.8 - 8.0 [facility] SP GRAVITY 1.025 1.003 - 1.030 [facility] GLU U QUAL Normal Normal [facility] BLOOD 3+ (A) Negative [facility] KETONES Negative Negative [facility] PROTEIN 100 mg/dL (A) Negative [facility] UROBILIN Normal Normal [facility] BILIRUBIN Negative Negative [facility] NITRITE Negative Negative [facility] LEUK BEATRIZ 250/uL (A) Negative [facility] RBC/HPF >182 (H) 0 - 3 HPF [facility] WBC/HPF 53 (H) 0 - 5 HPF [facility] BACTERIA Few (A) Negative [facility] MUCOUS Slight (A) Negative LPF [facility] SQ EPITH 2 <=2 HPF [facility] Specimen Urine - URINE, CLEAN CATCH Performing Organization Address City/State/Zipcode Phone Number [facility] CLIA: [id number], [address] [place] [address] [facility] ([place], [place]) documented in this encounter Visit Diagnoses Diagnosis Hydronephrosis of left kidney - Primary Hydronephrosis Left flank pain Abdominal pain, unspecified site Renal calculi Calculus of kidney Acute cystitis without hematuria Acute cystitis documented in this encounter Insurance Type Payer Benefit Subscriber ID Effective Phone Address Plan / Dates Group Medicaid [facility] xxxxxxxxx 2012-P PLAN - MANAGED MEDICAID STAR PLUS resent documented as of this encounter"
--- OUTSIDE RECORDS SUMMARY | 2019-10-24 09:34 | XMS REPORT | Summary of Care ---
Author Author [facility] - Health Organization [facility] - Health Address Unknown Phone Unavailable Care Team Providers Care Public Health Assistant Name Role Phone Marcos Quan Arevalo PCP Reason for Referral * MRI/CAT Scan (Routine) Referred By Contact Referred To Contact Status Reason Specialty Diagnoses / Procedures Evelyn Resendiz [facility] [address] [place] [address] Authorized Diagnostic Diagnoses Radiology Hydronephrosis of left kidney Left flank pain Renal calculi P rocedures CT ABDOMEN PELVIS W WO CONTRAST Reason for Visit * Reason Comments Establish Care Kidney Stones Encounter Details Care Team Description Date Type Department Evelyn Resendiz [facility] [address] [place] [address] [phone] Hydronephrosis of left kidney (Primary Dx); Left flank pain; Renal calculi; Acute cystitis without hematuria 09/24/2019 Office Visit [facility] [address], [address] [place] [id number] Allergies No Known Allergiesdocumented as of this [...] Comments Vital Sign 147/89 09/24/2019 2:41 PM CODING TECHNICIAN Blood Pressure 71 09/24/2019 2:41 PM CODING TECHNICIAN Pulse - - Temperature 18 09/24/2019 2:41 PM CODING TECHNICIAN Respiratory Rate 98% 09/24/2019 2:41 PM CODING TECHNICIAN Oxygen Saturation - - Inhaled Oxygen Concentration 107 kg (235 lb 14.4 oz) 09/24/2019 2:41 PM CODING TECHNICIAN Weight - - Height - - Body Mass Index documented in this encounter Patient Instructions * Patient Instructions* Evelyn Resendiz, PCTS - 09/24/2019 2:30 PM CODING TECHNICIAN Increase water intake Strain urine Understanding Hydronephrosis Hydronephrosis is when your kidneys fill with too much urine and swell up. It s cause by a problem in the urinary tract that stops urine from draining normall y. How to say it [id number]-tur-FRO-siss How hydronephrosis happens Urine usually flows from [...] cause. You may also see a urologist, foam molder worship pastor, or oncologist for treatment. Treatment may include: [...] Dwayne last reviewed this educational content on 07/29/201719997995-2844 [employer]. [address] [place] [address] 1906 7. All rights reserved. This information [...] right away if you develop a fever. [employer] last reviewed this educational content on 08/29/201619999548-2387 [employer]. [address] [place] [address] 7. All rights reserved. This information is not intended as a substitute for pro fessional medical care. Always follow your healthcare professional's instruction s. NG TECHNICIAN documented in this encounter Progress Notes * Eevlyn Resendiz FNP - 09/24/2019 2:30 PM CODING TECHNICIAN Visit Type: Clinic Note / History and Physical Referred by: ER Chief Complaint: Kidney stones HPI Arturo Adams is a 39 year old female with a past medical history of below presen ts for evaluation of kidney stones accompanied by her mother. She was seen on [facility] ER 09/13/2019 for LLQ pain with vomiting. [...] file Gets together: Not on file Attends methodist service: Not on file Active member of [...] Report Urine cultureResulted: 09/15/2019 7:51 AM Roverto Restorationist Component Name Value Ref Range Urine culture [...] to evaluate hydro Evelyn Resendiz APRN, ARNALDO-C NG TECHNICIAN documented in this encounter Plan of Treatment Care Team Description Date Type Specialty Smitha Gonsalez MD [id number] [place] [address] [phone] 10/04/2019 Office Visit Dermatology Health Maintenance Due [...] Routine 09/24/2019 Hydronephrosis of left 3:31 PM CODING TECHNICIAN kidney Left flank pain Renal calculi URINALYSIS Routine 09/24/2019 Hydronephrosis of left 3:30 PM CODING TECHNICIAN kidney Left flank pain Renal calculi documented in this encounter Results * CT ABDOMEN PELVIS W WO CONTRAST (09/29/2019 9:48 AM CODING TECHNICIAN) Specimen Impressions Performed At A punctate stone [...] Results Inft User - 10/01/2019 10:[address] ABDOMEN PELVIS W WO CONTRAST HISTORY: [...] Number PACS/VR/DOSE * CREATININE (09/24/2019 3:35 PM CODING TECHNICIAN) CREATININE 0.69 0.50 - 1.04 mg/dL [facility] eGFR 94.7 mL/min/1.73m2 [facility] Calculation [facility] (Non-[facility] [place]) eGFR 114.8 mL/min/1.73m2 [facility] Calculation [facility] ([facility]) Specimen Blood Narrative Performed At Association of Glomerular Filtration Rate (GFR) and Staging of Kidney Disease* [facility] + + + + [facility] | GFR (mL/min/1.73 m2) | With Kidney [...] tests). Performing Organization Address City/State/Zipcode Phone Number [facility] CLIA: [id number], [address] [place] [address] [facility] * URINE CULTURE (09/24/2019 3:31 PM CODING TECHNICIAN) Pathologist [facility] URINE CULTURE 10,000-100,000 CFU/mL [facility] Enterococcus faecalis SERVICES Specimen Urine - URINE, CLEAN CATCH Narrative Performed At Susceptibility testing of Enterococci from outpatient urine specimen is not [facility] routinely performed. [facility] data show that 97% of such isolates are susceptible to SERVICES Ampicillin. Performing Organization Address City/State/Zipcode Phone Number [facility] SERVICES CLIA: [id number], [address] [place], [place] [id number] [facility] * URINALYSIS (09/24/2019 3:30 PM CODING TECHNICIAN) Pathologist [facility] APPEARANCE Cloudy (A) Clear [facility] COLOR Yellow Yellow [facility] PH 5.0 4.8 - 8.0 [facility] SP GRAVITY 1.025 1.003 - 1.030 [facility] GLU U QUAL Normal Normal [facility] BLOOD 3+ (A) Negative [facility] KETONES Negative Negative [facility] PROTEIN 100 mg/dL (A) Negative [facility] UROBILIN Normal Normal [facility] BILIRUBIN Negative Negative [facility] NITRITE Negative Negative [facility] LEUK BEATRIZ 250/uL (A) Negative [facility] RBC/HPF >182 (H) 0 - 3 HPF [facility] WBC/HPF 53 (H) 0 - 5 HPF [facility] BACTERIA Few (A) Negative [facility] MUCOUS Slight (A) Negative LPF [facility] SQ EPITH 2 <=2 HPF [facility] Specimen Urine - URINE, CLEAN CATCH Performing Organization Address City/State/Zipcode Phone Number [facility] CLIA: [id number], [address] [place] [address] [facility] documented in this encounter Visit Diagnoses Diagnosis Hydronephrosis of left kidney - Primary Hydronephrosis Left flank pain Abdominal pain, unspecified site Renal calculi Calculus of kidney Acute cystitis without hematuria Acute cystitis documented in this encounter Insurance Type Payer Benefit Subscriber ID Effective Phone Address Plan / Dates Group Medicaid [facility] xxxxxxxxx 2012-P PLAN - MANAGED MEDICAID STAR PLUS resent documented as of this encounter"
--- OUTSIDE RECORDS SUMMARY | 2019-10-24 09:34 | XMS REPORT | Summary of Care ---
Author Author [facility] - Health Organization [facility] - Health Address Unknown Phone Unavailable Care Team Providers Care Change Booth Attendant Name Role Phone Marcos Quan Arevalo PCP Reason for Referral * MRI/CAT Scan (Routine) Referred By Contact Referred To Contact Status Reason Specialty Diagnoses / Procedures Evelyn Resendiz [facility] [address] [place] [address] Authorized Diagnostic Diagnoses Radiology Hydronephrosis of left kidney Left flank pain Renal calculi P rocedures CT ABDOMEN PELVIS W WO CONTRAST Reason for Visit * Reason Comments Establish Care Kidney Stones Encounter Details Care Team Description Date Type Department Evelyn Resendiz [facility] [address] [place] [address] [phone] Hydronephrosis of left kidney (Primary Dx); Left flank pain; Renal calculi; Acute cystitis without hematuria; Left ureteral calculus 09/24/2019 Office Visit [facility] [address] [place] [address] Allergies No Known Allergiesdocumented as of this [...] Comments Vital Sign 147/89 09/24/2019 2:41 PM SUPERVISOR SPECIAL SERVICES Blood Pressure 71 09/24/2019 2:41 PM SU[facility] Pulse - - Temperature 18 09/24/2019 2:41 PM [facility] Respiratory Rate 98% 09/24/2019 2:41 PM [facility] [employer] [facility] Oxygen Saturation - - Inhaled Oxygen Concentration 107 kg (235 lb 14.4 oz) 09/24/2019 2:41 PM [facility] Weight - - Height - - Body Mass Index documented in this encounter Patient Instructions * Patient Instructions* Evelyn Resendiz, ARNALDO - 09/24/2019 2:30 PM [employer] [employer] SERVICES Increase water intake Strain urine Understanding Hydronephrosis Hydronephrosis is when your kidneys fill with too much urine and swell up. It s cause by a problem in the urinary tract that stops urine from draining normall y. How to say it IT-qlsv-abm-FRO-siss How hydronephrosis happens Urine usually flows from [...] cause. You may also see a urologist, client application support engineer economic consultant, or oncologist for treatment. Treatment may include: [...] Dwayne last reviewed this educational content on 07/29/201719999010-2311 [employer]. [address] [place] [address] 1876 7. All rights reserved. This information is [...] right away if you develop a fever. [employer] last reviewed this educational content on 08/29/201619997659-8487 [employer]. [address] [place] [address] 7. All rights reserved. This information is not intended as a substitute for pro fessional medical care. Always follow your healthcare professional's instruction s. [facility] documented in this encounter Progress Notes * Evelyn Resendiz FNP - 09/24/2019 2:30 PM SUPERVISOR SPECIAL SERVICES Patient notified of results Suspected small stone in left distal ureter near UVJ Large 1.9 cm left renal pelvic stone No hydronephrosis Uterine fibroids and right ovarian hemorrhagic cyst - recently had pelvic US Will start on tamsulosin, discussed usage and side-effects. She is to stop if pe rsistent dizziness occurs Continue to increase water intake and strain urine ER precautions discussed RTC 3 weeks for follow-up, advised will also need to see faculty in future to kelly king possible future intervention of large left renal pelvic stone She will need metabolic work-up Follow-up with [facility] regarding uterine fibroids and ovarian cyst She needs repeat UA/Urine C&S 3 days after completion of antibiotics [facility] * Evelyn Resendiz FNP - 09/24/2019 2:30 PM SUPERVISOR SPECIAL SERVICES Visit Type: Clinic Note / History and Physical Referred by: ER Chief Complaint: Kidney stones HPI Arturo Adams is a 39 year old female with a past medical history of below presen ts for evaluation of kidney stones accompanied by her mother. She was seen on [facility] ER 09/13/2019 for LLQ pain with vomiting. [...] file Gets together: Not on file Attends sikhism service: Not on file Active member of [...] Result Report Urine cultureResulted: 09/15/2019 7:51 AM Layne Adventist Component Name Value Ref Range Urine culture [...] scan to evaluate hydro Evelyn Resendiz APRN, FNP-C [facility] documented in this encounter Plan of Treatment Care Team Description Date Type Specialty Smitha Gonsalez MD [id number] [place] [address] [phone] 10/04/2019 Office Visit Dermatology Order Schedule Name Type Priority Associated Diagnoses Expected: 10/03/2019, Expires: 10/03/2020 URINALYSIS LAB Routine Acute cystitis without hematuria Left ureteral calculus Expected: 10/03/2019, Expires: 10/03/2020 URINE CULTURE LAB Routine Acute cystitis without hematuria Left ureteral calculus Health Maintenance Due Date Last Done Comments DTaP,Tdap,and Td Vaccines 1991 (1 - Tdap) PAP SMEAR 2001 INFLUENZA VACCINE (#1) 2019 PNEUMOCOCCAL 0-64 YEARS Aged Out No longer eligible based COMBINED SERIES on patient's age to complete this topic documented as of this encounter Procedures Comments Procedure Name Priority Date/Time Associated Diagnosis URINE CULTURE Routine 09/24/2019 Hydronephrosis of left 3:31 PM SUPERVISOR [employer] SERVICES kidney Left flank pain Renal calculi URINALYSIS Routine 09/24/2019 Hydronephrosis of left 3:30 PM SUPERVISOR SPECIAL SERVICES kidney Left flank pain Renal calculi documented in this encounter Results * CT ABDOMEN PELVIS W WO CONTRAST (09/29/2019 9:48 AM SUPERVISOR SPECIAL SERVICES) Specimen Impressions Performed At A punctate stone [...] Results Inft User - 10/01/2019 10:[address] ABDOMEN PELVIS W WO CONTRAST HISTORY: [...] Number PACS/VR/DOSE * CREATININE (09/24/2019 3:35 PM SUPERVISOR SPECIAL SERVICES) CREATININE 0.69 0.50 - 1.04 mg/dL [facility] eGFR 94.7 mL/min/1.73m2 [facility] [place] Citizen) eGFR 114.8 mL/min/1.73m2 [facility] Calculation [facility] ([facility] [place] Citizen) Specimen Blood Narrative Performed At Association of Glomerular Filtration Rate (GFR) and Staging of Kidney Disease* [facility] + + + + [facility] | GFR (mL/min/1.73 m2) | With Kidney [...] tests). Performing Organization Address City/State/Zipcode Phone Number [facility] CLIA: [id number], [address] [place] [address] [facility] * URINE CULTURE (09/24/2019 3:31 PM SUPERVISOR SPECIAL SERVICES) URINE CULTURE 10,000-100,000 CFU/mL [facility] Enterococcus faecalis SERVICES Specimen Urine - URINE, CLEAN CATCH Narrative Performed At Susceptibility testing of Enterococci from outpatient urine specimen is not [facility] routinely performed. [facility] data show that 97% of such isolates are susceptible to SERVICES Ampicillin. Performing Organization Address City/State/Zipcode Phone Number [facility] SERVICES CLIA: [id number], [address] [place], [place] [address] [facility] * URINALYSIS (09/24/2019 3:30 PM SUPERVISOR SPECIAL SERVICES) APPEARANCE Cloudy (A) Clear [facility] COLOR Yellow Yellow [facility] PH 5.0 4.8 - 8.0 [facility] SP GRAVITY 1.025 1.003 - 1.030 [facility] GLU U QUAL Normal Normal [facility] BLOOD 3+ (A) Negative [facility] KETONES Negative Negative [facility] PROTEIN 100 mg/dL (A) Negative [facility] UROBILIN Normal Normal [facility] BILIRUBIN Negative Negative [facility] NITRITE Negative Negative [facility] LEUK BEATRIZ 250/uL (A) Negative [facility] RBC/HPF >182 (H) 0 - 3 HPF [facility] WBC/HPF 53 (H) 0 - 5 HPF [facility] BACTERIA Few (A) Negative [facility] MUCOUS Slight (A) Negative LPF [facility] SQ EPITH 2 <=2 HPF [facility] SERVICES-[facility] Specimen Urine - URINE, CLEAN CATCH Performing Organization Address City/State/Zipcode Phone Number [facility] CLIA: [id number], [address] [place] [address] SERVICES-[facility] documented in this encounter Visit Diagnoses Diagnosis Hydronephrosis of left kidney - Primary Hydronephrosis Left flank pain Abdominal pain, unspecified site Renal calculi Calculus of kidney Acute cystitis without hematuria Acute cystitis Left ureteral calculus Calculus of ureter documented in this encounter Insurance Type Payer Benefit Subscriber ID Effective Phone Address Plan / Dates Group Medicaid [facility] [place] xxxxxxxxx 2012-P PLAN - MANAGED MEDICAID STAR PLUS resent documented as of this encounter"
--- OUTSIDE RECORDS SUMMARY | 2019-10-24 09:34 | XMS REPORT ---
Author Author Admin, [place] Organization Unknown Address Unknown Phone Unavailable PROBLEMS Condition Status Date Provider Notes Menometrorrhagia active Codyeloy Crawfordria Hx of fibroids, uterus active Cody A [place] History of ovarian cyst active Cody A [place] Cervix, screening for malignant neoplasm active Cody A [place] Chop Saw Operator annual exam active Cody A [place] Pelvic pain, chronic active Cody A [place] Primary dysmenorrhea active Cody A [place] ENCOUNTERS Date Type Provider Location Encounter Diagnosis - Ambulatory Encounter Roger Adkins [facility] Services Contact Center UNK - Ambulatory [facility] - [facility] - [facility] - Ambulatory Encounter Roger Sebastian [facility] Services Contact Center UNK - Ambulatory Encounter [facility] - [facility] - [facility] - Ambulatory Encounter Cody A [place] Cody A Phoenixsalina Loredo APPRAISER AUDITOR UNK - Ambulatory Encounter Cody A [place] Cody A Phoenix Daniela Wisdom Hicela Alexi [place] APPRAISER AUDITOR Menometrorrhagia - Ambulatory Encounter Roger Campbell Sandra Caraballo UNK - Ambulatory Encounter Cody A [place] Ross A Phoenix [place] APPRAISER AUDITOR UNK - Ambulatory Encounter Cody A [place] Ross A Phoenix [facility] [place] APPRAISER AUDITOR UNK - Ambulatory Encounter Paula Truong [facility] UNK - Ambulatory Encounter Fax Status [facility] UNK - Ambulatory Encounter Roger Briceno [place] APPRAISER AUDITOR UNK - Ambulatory Encounter Cody A [place] Ross [facility] [place] [facility] - [facility]ulatory Encounter Cody A [place] Cody A Phoenix [place] APPRAISER AUDITOR UNK - Ambulatory Encounter Cody A [place] Ross A [place] Campbell [place] APPRAISER AUDITOR Chop Saw Operator annual examCervix, screening for malignant neoplasmHistory of ovarian cystHx of fibroids, uterus - Ambulatory Encounter Cody A [place] Ross A Phoenix [place] APPRAISER AUDITOR UNK - Ambulatory Encounter Cody A [place] Cody A Phoenix [employer] [place] APPRAISER AUDITOR UNK - Ambulatory Encounter Cody A [place] Cody A Phoenix [employer] [place] APPRAISER AUDITOR UNK - Ambulatory Encounter Phoebe Larose [place] [facility] UNK - [facility]ulatory [facility] Encounter Cody Salina Hawkinsgo Salina CrawfordPhoenixchristie Duncan [place] APPRAISER AUDITOR UNK - Ambulatory Encounter Cody Salina Hawkinsgo A [place] Phoebe Campbell [place] APPRAISER AUDITOR UNK - Ambulatory Encounter Cody Salina Ross A [place] APPRAISER AUDITOR UNK - Ambulatory Encounter Cody Salina Garibay Cody A [place] Paula Truong [place] APPRAISER AUDITOR Primary dysmenorrheaPelvic pain, chronic VITAL SIGNS Date Observation Value Provider pulse rate E&M 89 /min Jaya Truong " method used to obtain blood pressure manual Jaya Truong " Blood Pressure Position 01 sitting Jaya Truong " blood pressure, site #1 right arm Jaya Trunog " respiratory rate E&M 16 /min Jaya [...] Truong oxygen saturation, oximetry 97 % Paula Campbell [...] height in centimeters E&M 160.02 cm Paula Adrian oxygen saturation, oximetry 98 % Paula Campbell [...] - End Date Service - OB / Chop Saw Operator - External - Ultrasound - Pelvic RESULTS [...] Campbell " Nutrition intervention T Paula Campbell FUNCTIONAL [...] SQ Injection Est Patient Exp Problem - 72016 Est Patient Well Exam (18 - 39 Yrs) - 27044 New Patient Detailed - 22927 HISTORY OF PROCEDURES Procedure Date Procedure Name Provider Procedure Notes Status IM or SQ Injection Cody Garibay completed GOALS No Information Available HEALTH CONCERNS No Information Available
--- OUTSIDE RECORDS SUMMARY | 2019-10-24 09:34 | XMS REPORT | Summary of Care ---
Author Author [facility] - Health Organization [facility] - Health Address Unknown Phone Unavailable Care Team Providers Care Nursing Surgical Services Director Name Role Phone Selena Rodríguezflower Arevalo PCP Reason for Visit * Reason Comments Results Encounter Details Care Team Description Date Type Department Evelyn Resendiz, NEWSPAPER PRESS OPERATOR APPRENTICE [address] [facility] [address] [place], [place] [id number] Results 10/11/2019 Telephone [facility] [address] [facility], [address] [place] [address] Allergies No Known Allergiesdocumented as of this encounter (statuses as of 10/11/2019) Medications End Date Status Medication Sig Dispensed [...] as of this encounter (statuses as of 10/11/2019) Active Problems Problem Noted Date Acute cystitis without hematuria 10/03/2019 Hydronephrosis of left kidney 09/24/2019 Left flank pain 09/24/2019 Renal calculi 09/24/2019 documented as of this encounter (statuses as of 10/11/2019) Social History Date Tobacco Use Types Packs/Day [...] Team Description Date Type Specialty Evelyn Resendiz, NEWSPAPER PRESS OPERATOR APPRENTICE [address] [facility] [address] [place] [address] [phone] 10/30/2019 Office Visit Urology Health Maintenance Due Date Last Done Comments DTaP,Tdap,and Td Vaccines 1991 (1 - Tdap) PAP SMEAR 2001 INFLUENZA VACCINE (#1) 2019 PNEUMOCOCCAL 0-64 YEARS Aged Out No longer eligible based COMBINED SERIES on patient's age to complete this topic documented as of this encounter Results Not on filedocumented in this encounter Insurance Type Payer Benefit Subscriber ID Effective Phone Address Plan / Dates Group Medicaid [employer] [place] [place] xxxxxxxxx 2012-P PLAN - MANAGED MEDICAID STAR PLUS resent documented as of this encounter
--- OUTSIDE RECORDS SUMMARY | 2019-10-24 09:34 | XMS REPORT | Summary of Care ---
Author Author [facility] - Health Organization [facility] - Health Address Unknown Phone Unavailable Care Team Providers Care Straight Slicing Machine Operator Name Role Phone Marcos Quan Arevalo PCP Reason for Referral * MRI/CAT Scan (Routine) Referred By Contact Referred To Contact Status Reason Specialty Diagnoses / Procedures Evelyn Resendiz [facility] [address] [facility] [address] [place] [address] Authorized Diagnostic Diagnoses Radiology Hydronephrosis of left kidney Left flank pain Renal calculi P rocedures CT ABDOMEN PELVIS W WO CONTRAST Reason for Visit * Reason Comments Establish Care Kidney Stones Encounter Details Care Team Description Date Type Department Evelyn Resendiz [facility] [address] [facility] [address] [place] [address] [phone] Hydronephrosis of left kidney (Primary Dx); Left flank pain; Renal calculi; Acute cystitis without hematuria; Left ureteral calculus 09/24/[address] [facility] [address] [facility], [address] [place] [address] Allergies No Known Allergiesdocumented as of this [...] Comments Vital Sign 147/89 09/24/2019 2:41 PM GEL COAT SPRAYER Blood Pressure 71 09/24/2019 2:41 PM GEL COAT SPRAYER Pulse - - Temperature 18 09/24/2019 2:41 PM GEL COAT SPRAYER Respiratory Rate 98% 09/24/2019 2:41 PM GEL COAT SPRAYER Oxygen Saturation - - Inhaled Oxygen Concentration 107 kg (235 lb 14.4 oz) 09/24/2019 2:41 PM GEL COAT SPRAYER Weight - - Height - - Body Mass Index documented in this encounter Patient Instructions * Patient Instructions* Evelyn Resendiz, ARNALDO - 09/24/2019 2:30 PM GEL COAT SPRAYER Increase water intake Strain urine Understanding Hydronephrosis Hydronephrosis is when your kidneys fill with too much urine and swell up. It s cause by a problem in the urinary tract that stops urine from draining normall y. How to say it [id number] How hydronephrosis happens Urine usually flows from [...] cause. You may also see a urologist, post secondary professional development administrator, or oncologist for treatment. Treatment may include: [...] Dwayne last reviewed this educational content on 07/29/201719990746-4102 [employer]. [address] [place] [address] 4636 7. All rights reserved. This information is [...] right away if you develop a fever. [employer] last reviewed this educational content on 08/29/201619991474-1420 [employer] [address] [place] [address] 7. All rights reserved. This information is not intended as a substitute for pro fessional medical care. Always follow your healthcare professional's instruction s. COAT SPRAYER documented in this encounter Progress Notes * Evelyn Resendiz FNP - 09/24/2019 2:30 PM GEL COAT SPRAYER Visit Type: Clinic Note / History and Physical Referred by: ER Chief Complaint: Kidney stones DENG Adams is a 39 year old female with a past medical history of below presen ts for evaluation of kidney stones accompanied by her mother. She was seen on [facility] ER 09/13/2019 for LLQ pain with [...] file Gets together: Not on file Attends judaism service: Not on file Active member of [...] Report Urine cultureResulted: 09/15/2019 7:51 AM Layne Hinduism Component Name Value Ref Range Urine culture [...] scan to evaluate hydro Evelyn Resendiz APRN, INSTRUMENT REPAIRER-C COAT SPRAYER documented in this encounter Plan of Treatment Care Team Description Date Type Specialty Smitha Gonsalez MD [address] [facility] [id number] [place] [address] [phone] 10/04/2019 Office Visit Dermatology Order Schedule Name [...] Routine 09/24/2019 Hydronephrosis of left 3:31 PM GEL COAT SPRAYER kidney Left flank pain Renal calculi URINALYSIS Routine 09/24/2019 Hydronephrosis of left 3:30 PM GEL COAT SPRAYER kidney Left flank pain Renal calculi documented in this encounter Results * CT ABDOMEN PELVIS W WO CONTRAST (09/29/2019 9:48 AM GEL COAT SPRAYER) Specimen Impressions Performed At A punctate stone [...] Results Inft User - 10/01/2019 10:[address] ABDOMEN PELVIS W WO CONTRAST HISTORY: [...] with the above report. Performing Organization Address [facility]/Zipcode Phone Number PACS/VR/DOSE * CREATININE (09/24/2019 3:35 PM GEL COAT SPRAYER) CREATININE 0.69 0.50 - 1.04 mg/dL [facility] SERVICESRES[facility] eGFR 94.7 mL/min/1.73m2 [facility] Calculation [facility] ([facility]) eGFR 114.8 mL/min/1.73m2 [facility] Calculation [facility] ([facility]) Specimen Blood Narrative Performed At Association of Glomerular Filtration Rate (GFR) and Staging of Kidney Disease* [facility] + + + + [facility] | GFR (mL/min/1.73 m2) | [...] tests). Performing Organization Address City/State/Zipcode Phone Number [facility] CLIA: [id number], [address] [place] [address] [facility] * URINE CULTURE (09/24/2019 3:31 PM GEL COAT SPRAYER) URINE CULTURE 10,000-100,000 CFU/mL [facility] Enterococcus faecalis SERVICES Specimen Urine - URINE, CLEAN CATCH Narrative Performed At Susceptibility testing of Enterococci from outpatient urine specimen is not [facility] routinely performed. [facility] data show that 97% of such isolates are susceptible to SERVICES Ampicillin. Performing Organization Address City/State/Zipcode Phone Number [facility] SERVICES CLIA: [id number], [address] [place] [address] [facility] * URINALYSIS (09/24/2019 3:30 PM GEL COAT SPRAYER) APPEARANCE Cloudy (A) Clear [facility] COLOR Yellow Yellow [facility] PH 5.0 4.8 - 8.0 [facility] SP GRAVITY 1.025 1.003 - 1.030 [facility] GLU U QUAL Normal Normal [facility] BLOOD 3+ (A) Negative [facility] KETONES Negative Negative [facility] PROTEIN 100 mg/dL (A) Negative [facility] UROBILIN Normal Normal [facility] BILIRUBIN Negative Negative [facility] NITRITE Negative Negative [facility] LEUK BEATRIZ 250/uL (A) Negative [facility] RBC/HPF >182 (H) 0 - 3 HPF [facility] WBC/HPF 53 (H) 0 - 5 HPF [facility] BACTERIA Few (A) Negative [facility] MUCOUS Slight (A) Negative LPF [facility] SQ EPITH 2 <=2 HPF [facility] Specimen Urine - URINE, CLEAN CATCH Performing Organization Address City/State/Zipcode Phone Number [facility] CLIA: [id number], [address] [place] [address] [facility] documented in this encounter Visit Diagnoses Diagnosis Hydronephrosis of left kidney - Primary Hydronephrosis Left flank pain Abdominal pain, unspecified site Renal calculi Calculus of kidney Acute cystitis without hematuria Acute cystitis Left ureteral calculus Calculus of ureter documented in this encounter Insurance Type Payer Benefit Subscriber ID Effective Phone Address Plan / Dates Group Medicaid [facility] xxxxxxxxx 2012-P PLAN - MANAGED MEDICAID STAR PLUS resent documented as of this encounter"
--- OUTSIDE RECORDS SUMMARY | 2019-10-24 09:34 | XMS REPORT | Summary of Care ---
Author Author [facility] - Health Organization [facility] - Health Address Unknown Phone Unavailable Care Team Providers Care Assistant Buyer Name Role Phone Marcos Quan Arevalo PCP Reason for Referral * MRI/CAT Scan (Routine) Referred By Contact Referred To Contact Status Reason Specialty Diagnoses / Procedures Evelyn Resendiz [address] [place] [address] Authorized Diagnostic Diagnoses Radiology Hydronephrosis of left kidney Left flank pain Renal calculi P rocedures CT ABDOMEN PELVIS W WO CONTRAST Reason for Visit * MRI/CAT Scan (Routine) Referred By Contact Referred To Contact Status Reason Specialty Diagnoses / Procedures Evelyn Resendiz [address] [place] [address] Authorized Diagnostic Diagnoses Radiology Hydronephrosis of left kidney Left flank pain Renal calculi P rocedures CT ABDOMEN PELVIS W WO CONTRAST Encounter Details Care Team Description Date Type Department Evelyn Resendiz [address] [address] [phone] Arrived 09/29/[address] [facility] Encounter [facility] [address] [place] [address] [phone] Allergies No Known Allergiesdocumented as of this encounter (statuses as of 09/30/2019) Medications End Date Status Medication Sig Dispensed [...] as of this encounter (statuses as of 09/30/2019) Active Problems Problem Noted Date Hydronephrosis of left kidney 09/24/2019 Left flank pain 09/24/2019 Renal calculi 09/24/2019 documented as of this encounter (statuses as of 09/30/2019) Social History Date Tobacco Use Types Packs/Day [...] Specialty Smitha Gonsalez MD [id number] [place], [place] [address] 10/04/2019 Office Visit Dermatology Date/Time Name Type Priority Associated Diagnoses 09/29/2019 9:[address] ABDOMEN PELVIS W WO IMAGING Routine Hydronephrosis of left CONTRAST kidney Left flank pain Renal calculi Order Schedule Name Type Priority Associated Diagnoses 1 Occurrences starting 09/29/2019 until 09/29/2019 CT ABDOMEN PELVIS W WO IMAGING Routine Hydronephrosis of left CONTRAST kidney Left flank pain Renal calculi Health Maintenance Due Date Last Done Comments DTaP,Tdap,and Td Vaccines 1991 (1 - Tdap) PAP SMEAR 2001 INFLUENZA VACCINE (#1) 2019 PNEUMOCOCCAL 0-64 YEARS Aged Out No longer eligible based COMBINED SERIES on patient's age to complete this topic documented as of this encounter Results Not on filedocumented in this encounter Visit Diagnoses Diagnosis Hydronephrosis of left kidney Hydronephrosis Left flank pain Abdominal pain, unspecified site Renal calculi Calculus of kidney documented in this encounter Administered Medications Action Date Dose Rate Site Medication Order MAR Action 09/29/2019 9:34 AM KILN REPAIRER 130 mL iohexol (OMNIPAQUE 350 BULK-150 mL) Given injection 130 mL 130 mL, Intravenous, ONCE, 1 dose, 09/29/19 at 1000, Routine documented in this encounter Insurance Type Payer Benefit Subscriber ID Effective Phone Address Plan / Dates Group Medicaid [employer] [place] xxxxxxxxx 2012-P PLAN - MANAGED MEDICAID STAR PLUS resent (Home) [place] [address] documented as of this encounter
--- OUTSIDE RECORDS SUMMARY | 2019-10-24 09:34 | XMS REPORT | Summary of Care ---
Author Author [facility] - Health Organization [facility] - Health Address Unknown Phone Unavailable Care Team Providers Care Timber Management Assistant Name Role Phone Quan Rodríguez PCP Reason for Visit * Reason Comments LAB WORK Encounter Details Care Team Description Date Type Department Evelyn Resendiz, WASTEWATER SUPERVISOR [address] [facility] [address] [place] [address] [phone] Vls-Lab Hydronephrosis of left kidney; Left flank pain; Renal calculi 09/24/2019 [employer]ging [employer] [facility] Visit PHLEBOTOMY/LAB [address] [facility] [address] [place] [address] Allergies No Known Allergiesdocumented as of this encounter (statuses as of 09/24/2019) Medications End Date Status Medication Sig Dispensed [...] Q 0 8 H PRF 0 CRAMPS documented as of this encounter (statuses as of 09/24/2019) Active Problems Problem Noted Date Hydronephrosis of left kidney 09/24/2019 Left flank pain 09/24/2019 Renal calculi 09/24/2019 documented as of this encounter (statuses as of 09/24/2019) Social History Date Tobacco Use Types Packs/Day [...] Team Description Date Type Specialty Evelyn Resendiz, WASTEWATER SUPERVISOR [address] [facility] [address] [place], [place] [address] 09/29/2019 Appointment Radiology Smitha Gonsalez MD [id number] [place], [place] [address] 10/04/2019 Office Visit Dermatology Health Maintenance Due [...] Calculus of kidney documented in this encounter Insurance Type Payer Benefit Subscriber ID Effective Phone Address Plan / Dates Group Medicaid [employer] [place] xxxxxxxxx 2012-P PLAN - MANAGED MEDICAID STAR PLUS resent (Home) [place] [address] documented as of this encounter
[2019-10-24 12:30] VITALS: BP 147/96
== END | disposition home or self-care (01) ==
LOC: OR 09:15
PROVIDERS: ATTEND Internal Medicine Gastroenterology
DX: K29.50 Unspecified chronic gastritis without bleeding (principal); K63.5 Polyp of colon; K21.0 Gastro-esophageal reflux disease with esophagitis; K44.9 Diaphragmatic hernia without obstruction or gangrene; K59.00 Constipation, unspecified; K64.8 Other hemorrhoids; Z71.3 Dietary counseling and surveillance; D50.9 Iron deficiency anemia, unspecified; I10 Essential (primary) hypertension; E66.01 Morbid (severe) obesity due to excess calories; F95.8 Other tic disorders; K80.80 Other cholelithiasis without obstruction; N20.0 Calculus of kidney; Z01.810 Encounter for preprocedural cardiovascular examination; Z68.39 Body mass index [BMI] 39.0-39.9, adult
CPT/HCPCS: 43239; 45380; 81025; 93005; J2001; J2250; J2704; J3010; 45384

== ENCOUNTER → 2020-08-01 | Outpatient (CLI) | payer MEDICARE, OTHER ==
[~2020-08-01] MED LIST changes: -FENTANYL CITRATE/PF 100MCG/2 ML INJ ONE; -LIDOCAINE HCL 2% LOCAL INJ 5 ML SDV VIAL INJ ONE; -MIDAZOLAM HCL 2 MG/2 ML VIAL ONE; -PROPOFOL IV EMULSION 10 MG/ML 20 ML VIAL ONE
== END ==
LOC: MAMMO 14:03
PROVIDERS: ATTEND Internal Medicine
DX: Z12.31 Encounter for screening mammogram for malignant neoplasm of breast (principal)
CPT/HCPCS: 77067

== ENCOUNTER 2021-06-24 18:11 | Emergency (ER) | payer MEDICARE, OTHER ==
[~2021-06-24] VITALS: Ht 162.6 cm; Wt 118.4 kg
[2021-06-24] MEDS ORDERED: ATENOLOL25 MG PO (18:38)
[2021-06-24] MEDS ORDERED: LEVOTHYROXINE25 MCG PO (18:38)
[2021-06-24 19:10] LABS: CALCIUM 8.7 mg/dL (8.4-10.2); CREATININE, SERUM 0.82 mg/dL (0.57-1.11)
== END 2021-06-24 20:45 | disposition home or self-care (01) ==
LOC: ER 18:20
DX: E87.8 Other disorders of electrolyte and fluid balance, not elsewhere classified (principal); I10 Essential (primary) hypertension; E03.9 Hypothyroidism, unspecified; D64.9 Anemia, unspecified; K21.9 Gastro-esophageal reflux disease without esophagitis
CPT/HCPCS: 36415; 80048; 93005; 99284

== ENCOUNTER → 2021-09-16 | Outpatient (CLI) | payer MEDICARE ==
[~2021-09-16] MED LIST changes: +ATENOLOL25 MG PO; +LEVOTHYROXINE25 MCG PO
== END ==
LOC: MAMMO 08:40
PROVIDERS: ATTEND Internal Medicine
DX: Z12.31 Encounter for screening mammogram for malignant neoplasm of breast (principal)
CPT/HCPCS: 77067

== ENCOUNTER → 2022-11-09 | Outpatient (CLI) | payer MEDICARE | LOC: MAMMO 14:12 | PROVIDERS: ATTEND Internal Medicine | DX: Z12.31 Encounter for screening mammogram for malignant neoplasm of breast (principal) | CPT/HCPCS: 77067 ==

== ENCOUNTER → 2024-01-13 | Outpatient (REF) | payer MEDICARE | LOC: US 11:09 | PROVIDERS: ATTEND Urology | DX: R31.21 Asymptomatic microscopic hematuria (principal); N39.0 Urinary tract infection, site not specified | CPT/HCPCS: 76770 ==